=== PATIENT | female | born 1960 | race Caucasian/White ===

== ENCOUNTER 2016-08-18 06:50 | Day surgery (SDC) | payer BC ==
[~2016-08-18 06:50] MED LIST: RINGER'S SOLUTION,LACTATED 1,000 ML IV PRN; ceFAZolin SODIUM 1 GM VIAL IV PRN
[2016-08-18] MEDS ORDERED: RINGER'S SOLUTION,LACTATED 1,000 ML IV ONE (09:00)
--- NOTE | 2016-08-18 09:48 | OR ---
Operative Report - Dictated Report Narrative: Date: 08/18/2016 Physician: Dusty Truong M.D. Lining Setter: Ayaan Dominguez PA-C Preoperative diagnosis: Right comminuted intra-articular radial head fracture Postoperative diagnosis: Right comminuted Xavier type III radial head fracture Procedure: Right radial head replacement Anesthesia: Gen. plus extremity block Complications: None Estimated blood loss: Minimal Tourniquet time: 53 Minutes at 250 mmHg Specimens: None Retained implants: Accumed size 8.0 mm +0 mm straight radial head stem, Accumed 22 mm radial head Drains: None Indications: Jessica is a 56 year-old female who tripped over a gas pump hose and fell onto her outstretched right arm. She did not have immediate pain in the elbow and noted no gross deformity but upon trying to turn her steering wheel she began having pain in the right elbow. She presented to the [facility] emergency department where workup revealed a right radial head fracture. Orthopedics was consulted and we instructed them to place her in a double sugar tong splint. She was seen in our office the next day where a CT scan was ordered. This demonstrated a comminuted radial head fracture with at least 3 displaced articular fragments. We discussed treatment options including ORIF vs radial head replacement with the decision to be made at the time of surgery upon direct visualization of the fracture. The risks and benefits of surgery were discussed in detail with the patient. The risks being bleeding, infection, nerve, tendon, blood vessel injury, persistent pain, stiffness, instability, wound complications, weakness, need for additional procedures, implant failure/ loosening and persistent symptoms. After discussion she wished to proceed. Consent was obtained in the clinic. Procedure: After marking the correct extremity in the preoperative holding area, a timeout was performed in the operating room. An extremity block was then performed by the anesthesia provider without complication and general anesthesia was then induced. IV antibiotics consisting of 1 g of Ancef was administered prior to the procedure. The left arm was then prepped and draped in the usual sterile fashion. A well-padded sterile tourniquet was applied to the operative upper arm. The arm was exsanguinated and the tourniquet was inflated to 250 mmHg. Attention was turned to the lateral aspect of the elbow. The lateral epicondyle was marked out and a longitudinal incision was then marked out extending from just proximal to the lateral condyle centered over the radiocapitellar joint extending distally. The incision was then made approximately 6 cm in length. Combination of blunt dissection with scissors and electrocautery was carried down through subcutaneous tissue to the level of the extensor fascia. A Thompson interval approach was chosen. The interval between EDC and ECRB was then developed revealing the supinator muscle belly just deep to this. The supinator muscle belly was incised being careful to protect the posterior interosseous nerve. The forearm was held in pronation during the approach. We then came down to the joint capsule of the radiocapitellar joint which was incised and we immediately encountered serosanguinous fluid. The joint capsule was opened up with a sharp knife and the annular ligament was released to obtain good visualization of the radial neck and radiocapitellar joint space. There was noted to be 2 larger impacted articular fragments and 2 smaller articular fragments all comprising ~50% of the joint surface. Given the number of fragments and severe impaction, we made the decision to proceed with radial head replacement. The capitellum was inspected and noted to have a full thickness cartilage injury ~5mm in diameter. The proximal radioulnar articulation of the elbow was inspected and no articular injury was noted. The joint was copiously irrigated and then inspected to ensure that we removed all loose bony and chondral fragments. At this point we turned our attention to the radial neck. We cleaned up the neck with a straight perpendicular cut using a small oscillating saw. The radial canal was then cannulated with the entry reamer. The canal was then hand reamed up to a size 8 mm. We reassembled the radial head fragments on the back table and sized this to approximately 22 mm. A 8.0 mm +0 neck with a 22 mm radial head trial gave us good fit with good stability throughout full flexion/ extension and prono-/supination without overstuffing the joint. The elbow was stable to varus and valgus stress. This was confirmed with the mini-C arm. We also examined the wrist under fluoroscopy and found good maintenance of radial height. The distal radioulnar joint was then examined in neutral position, pronation, and supination and found to be stable. At this point we were happy with the size of our implants and all trial implants were removed. The wound was again irrigated with normal saline and the final implants were impacted into place. We once again checked our elbow range of motion and stability as well as DURJ stability. Final fluoroscopic images were obtained including stress views at the elbow as well as an AP of the wrist confirming appropriate radial height. The wound was then copiously irrigated with normal saline and the wounds were closed in a layered fashion. The capsule and annular ligament were repaired with interrupted 0 Vicryl suture. The extensor tendon fascia was then repaired with a running 3-0 Vicryl stitch. 3-0 Vicryl suture was placed in a deep dermal fashion. Skin was then closed with interrupted 4-0 nylon. Xeroform, 4 x 4's, soft roll, and LUCY wrap was applied and the arm was placed in a sling. The patient was awoken and transferred to the post-anesthesia care unit in stable condition. All sponge, needle, blade, and instrument counts were correct prior to closing the wounds.
[2016-08-18 11:24] VITALS: BP 129/84
--- NOTE | 2016-08-18 12:16 | OR ---
Anesthesia Procedure Note - Anesthesia Procedure Note Date of Service: 08/18/16 Narrative: Vital Signs - Last Taken Temp 36.8 C 08/18/16 09:50 Pulse 67 08/18/16 11:23 Resp 18 08/18/16 11:23 BP 129/84 08/18/16 11:23 Pulse Ox 95 08/18/16 11:23 O2 Oxygen Delivery Method Room Air 08/18/16 12:14 ANESTHESIA PROCEDURE NOTE Date of Procedure: 08/18/2016 Time of procedure: . Performed by: ALBERTINA Hunter CRNA, MSN Contact Lens Manufacturer: Phoebe Saini RN. Preprocedure diagnosis: Right elbow surgery, post surgical pain relief requirements. Post procedure diagnosis: Same. Procedure: Right Interscalene nerve block. Indications: Post elbow surgery pain relief. Findings: See below. Details of the procedure: The patient was brought to OR #4 and placed in semi- Fowlers position. The patient was prepped with chlorhexidine and using ultrasound guidance the right interscalene segment of the brachial plexus was identified and lidocaine 1% was infiltrated to the skin of the intended injection site. Under ultrasound guidance the interscalene nerve bundles were approached until a shoulder/arm response was identified on nerve stimulator. Once the stimulator response was effective at less than 0.5 mV and greater than 0.3 mV the femoral nerve was surrounded with 30 mL bupivacaine 0.5% with 1-200, 000 epinephrine. Please see radiology/ultrasound report for details and images of the procedure. EBL: 0 Fluids: N/A. Specimen: N/A. Post procedure condition: The patient tolerated the procedure well. No complications were noted. Thank you for this consultation. Eleazar Maurice CRNA, ALBERTINA, MSN
== END 2016-08-18 06:51 | disposition home or self-care (01) ==
LOC: AMB 06:50
PROVIDERS: ATTEND Orthopaedic Surgery
PROC: 3E0T3BZ Introduction of Anesthetic Agent into Peripheral Nerves and Plexi, Percutaneous Approach (ICD-10-PCS; 2016-08-18)
PROC: 0PSH04Z Reposition Right Radius with Internal Fixation Device, Open Approach (ICD-10-PCS; principal; 2016-08-18 08:00)
DX: S52.121A Displaced fracture of head of right radius, initial encounter for closed fracture (principal); I10 Essential (primary) hypertension; J45.20 Mild intermittent asthma, uncomplicated; K21.9 Gastro-esophageal reflux disease without esophagitis; F32.9 Major depressive disorder, single episode, unspecified; F41.1 Generalized anxiety disorder; Z68.20 Body mass index [BMI] 20.0-20.9, adult; W01.0XXA Fall on same level from slipping, tripping and stumbling without subsequent striking against object, initial encounter